=== PATIENT | male | born 1945 | race Caucasian/White ===

== ENCOUNTER 2017-02-21 10:31 | Outpatient (CLI) | payer MEDICARE ==
[2017-02-21 19:04] LABS: ALBUMIN/GLOBULIN RATIO 1.7 (1.0-2.2); BILIRUBIN,TOTAL 0.7 mg/dL (0.2-1.0); BUN - BLOOD UREA NITROGEN 21 mg/dL (6-20); CALCIUM 9.2 mg/dL (8.5-10.3); CARBON DIOXIDE - CO2 29 mmol/L (21-32); CHLORIDE 105 mmol/L (101-111); CREATININE 1.1 mg/dL (0.6-1.2); GFR - MDRD 66 (>89); GLUCOSE 91 mg/dL (70-100); POTASSIUM 4.2 mmol/L (3.5-5.0); SODIUM 139 mmol/L (135-145); TOTAL PROTEIN 6.7 g/dL (6.7-8.2)
== END 2017-02-21 10:32 | disposition home or self-care (01) ==
LOC: LAB.F 10:31
PROVIDERS: ATTEND Physician Assistant Medical
DX: I10 Essential (primary) hypertension (principal); Z12.5 Encounter for screening for malignant neoplasm of prostate; R97.20 Elevated prostate specific antigen [PSA]; E03.9 Hypothyroidism, unspecified
CPT/HCPCS: 36415; 80053; 84443; G0103; 84153

== ENCOUNTER 2017-02-23 10:20 | Outpatient (CLI) | payer MEDICARE ==
[2017-02-23 17:46] LABS: BASOPHILS # (AUTO) 0.1 10^3/uL (0.0-0.1); EOSINOPHILS # (AUTO) 0.2 10^3/uL (0.0-0.7); EOSINOPHILS % (AUTO) 3.3 %; HCT - HEMATOCRIT 43.9 % (42.0-52.0); HGB - HEMOGLOBIN 14.5 g/dL (14.0-18.0); LYMPHOCYTES # (AUTO) 1.3 10^3/uL (1.5-3.5); LYMPHOCYTES % (AUTO) 24.8 %; MEAN CORPUSCULAR HEMOGLOBIN 27.7 pg (27.0-31.0); MEAN CORPUSCULAR VOLUME 83.9 fL (80.0-94.0); MEAN PLATELET VOLUME 8.9 fL (7.4-11.4); MONOCYTES # (AUTO) 0.4 10^3/uL (0.0-1.0); MONOCYTES % (AUTO) 7.6 %; NEUTROPHILS # (AUTO) 3.4 10^3/uL (1.5-6.6); NEUTROPHILS % (AUTO) 63.3 %; NUCLEATED RED BLOOD CELLS AUTO 0.1 /100WBC; RED BLOOD COUNT 5.24 10^6/uL (4.70-6.10); UNCORRECTED WHITE BLOOD COUNT 5.3 x10^3/uL; WHITE BLOOD COUNT 5.3 x10^3/uL (4.8-10.8)
== END 2017-02-23 10:21 | disposition home or self-care (01) ==
LOC: LAB.F 10:20
PROVIDERS: ATTEND Physician Assistant Medical
DX: I10 Essential (primary) hypertension (principal)
CPT/HCPCS: 85025

== ENCOUNTER → 2017-02-28 | Outpatient (CLI) | payer MEDICARE ==
[2017-02-28 18:38] LABS: PSA TOTAL 2.476 ng/mL (0.000-2.000)
[2017-02-28 18:39] LABS: PSA FREE 0.282 ng/mL (0.16-2.81)
== END ==
LOC: LAB.F 08:00
PROVIDERS: ATTEND Physician Assistant Medical
DX: R97.20 Elevated prostate specific antigen [PSA] (principal); Z12.5 Encounter for screening for malignant neoplasm of prostate
CPT/HCPCS: 36415; 84154

== ENCOUNTER 2018-01-16 07:20 | Outpatient (CLI) | payer MEDICARE ==
[2018-01-16 10:39] LABS: BASOPHILS % (AUTO) 0.7 %; EOSINOPHILS # (AUTO) 0.1 10^3/uL (0.0-0.7); EOSINOPHILS % (AUTO) 1.8 %; LYMPHOCYTES # (AUTO) 1.1 10^3/uL (1.5-3.5); LYMPHOCYTES % (AUTO) 25.9 %; MEAN CORPUSCULAR HEMOGLOBIN 28.6 pg (27.0-31.0); MEAN CORPUSCULAR HGB CONC 32.9 g/dL (32.0-36.0); MEAN CORPUSCULAR VOLUME 87.2 fL (80.0-94.0); MEAN PLATELET VOLUME 9.3 fL (7.4-11.4); MONOCYTES # (AUTO) 0.3 10^3/uL (0.0-1.0); MONOCYTES % (AUTO) 7.4 %; NEUTROPHILS # (AUTO) 2.8 10^3/uL (1.5-6.6); NEUTROPHILS % (AUTO) 64.2 %; PLT - PLATELET COUNT 126 10^3/uL (130-450); RED BLOOD COUNT 4.89 10^6/uL (4.70-6.10); RED CELL DISTRIBUTION WIDTH 15.3 % (12.0-15.0); WHITE BLOOD COUNT 4.4 x10^3/uL (4.8-10.8)
[2018-01-16 11:07] LABS: ALBUMIN 3.8 g/dL (3.2-5.5); ALBUMIN/GLOBULIN RATIO 1.5 (1.0-2.2); ALKALINE PHOSPHATASE 50 IU/L (42-121); ALT ALANINE AMINOTRANSFERASE 13 IU/L (10-60); AST ASPARTATE AMINOTRANSFERASE 16 IU/L (10-42); BILIRUBIN,TOTAL 0.9 mg/dL (0.2-1.0); BUN - BLOOD UREA NITROGEN 11 mg/dL (6-20); CARBON DIOXIDE - CO2 28 mmol/L (21-32); CHLORIDE 106 mmol/L (101-111); CHOL/HDL RATIO 3.2 (<5.0); CHOLESTEROL 164 mg/dL; CREATININE 0.9 mg/dL (0.6-1.2); GFR - MDRD 83 (>89); GLUCOSE 89 mg/dL (70-100); HDL CHOLESTEROL 51 mg/dL; LDL CHOLESTEROL,CALCULATED 99 mg/dL; LDL/HDL RATIO 1.9 (<3.6); SODIUM 139 mmol/L (135-145); TOTAL PROTEIN 6.4 g/dL (6.7-8.2); VLDL CHOLESTEROL 14 mg/dL
== END 2018-01-16 07:21 | disposition home or self-care (01) ==
LOC: LAB.F 07:20
PROVIDERS: ATTEND Physician Assistant Medical
DX: I10 Essential (primary) hypertension (principal); E78.5 Hyperlipidemia, unspecified; C61 Malignant neoplasm of prostate; E03.9 Hypothyroidism, unspecified
CPT/HCPCS: 36415; 80053; 80061; 83721; 84153; 84443; 85025

== ENCOUNTER 2018-10-07 08:35 | Outpatient (CLI) | payer MEDICARE ==
[2018-10-07 14:51] LABS: BILIRUBIN,URINE NEGATIVE (NEGATIVE); GLUCOSE, URINE (UA) NEGATIVE (NEGATIVE); KETONES,URINE (UA) NEGATIVE (NEGATIVE); LEUKOCYTE ESTERASE, URINE NEGATIVE (NEGATIVE); NITRITE,URINE NEGATIVE (NEGATIVE); OCCULT BLOOD,URINE NEGATIVE (NEGATIVE); PROTEIN,URINE NEGATIVE (NEGATIVE); UROBILINOGEN,URINE 0.2 (NORMAL) E.U./dL (NORMAL)
[2018-10-07 14:53] LABS: CLARITY,URINE CLEAR (CLEAR)
== END 2018-10-07 23:59 | disposition home or self-care (01) ==
LOC: LAB.R 08:35
PROVIDERS: ATTEND Physician Assistant Medical
DX: R31.0 Gross hematuria (principal)
CPT/HCPCS: 81001; 81003; 87086

== ENCOUNTER 2018-11-17 08:29 | Outpatient (CLI) | payer MEDICARE ==
[2018-11-17 11:35] LABS: BASOPHILS % (AUTO) 0.6 %; EOSINOPHILS # (AUTO) 0.1 10^3/uL (0.0-0.7); EOSINOPHILS % (AUTO) 2.1 %; HGB - HEMOGLOBIN 14.9 g/dL (14.0-18.0); LYMPHOCYTES # (AUTO) 1.1 10^3/uL (1.5-3.5); LYMPHOCYTES % (AUTO) 21.7 %; MEAN CORPUSCULAR HEMOGLOBIN 28.9 pg (27.0-31.0); MEAN CORPUSCULAR VOLUME 87.7 fL (80.0-94.0); MEAN PLATELET VOLUME 8.9 fL (7.4-11.4); MONOCYTES # (AUTO) 0.3 10^3/uL (0.0-1.0); MONOCYTES % (AUTO) 6.7 %; NEUTROPHILS # (AUTO) 3.4 10^3/uL (1.5-6.6); NEUTROPHILS % (AUTO) 68.9 %; PLT - PLATELET COUNT 156 10^3/uL (130-450); RED BLOOD COUNT 5.15 10^6/uL (4.70-6.10); RED CELL DISTRIBUTION WIDTH 14.5 % (12.0-15.0)
[2018-11-17 11:38] LABS: BILIRUBIN,URINE NEGATIVE (NEGATIVE); GLUCOSE, URINE (UA) NEGATIVE (NEGATIVE); KETONES,URINE (UA) NEGATIVE (NEGATIVE); LEUKOCYTE ESTERASE, URINE NEGATIVE (NEGATIVE); NITRITE,URINE NEGATIVE (NEGATIVE); OCCULT BLOOD,URINE NEGATIVE (NEGATIVE); PROTEIN,URINE NEGATIVE (NEGATIVE); UROBILINOGEN,URINE 0.2 (NORMAL) E.U./dL (NORMAL)
[2018-11-17 11:42] LABS: CLARITY,URINE CLEAR (CLEAR)
[2018-11-17 12:06] LABS: ALBUMIN 4.1 g/dL (3.2-5.5); ALBUMIN/GLOBULIN RATIO 1.8 (1.0-2.2); ALKALINE PHOSPHATASE 52 IU/L (42-121); ALT ALANINE AMINOTRANSFERASE 16 IU/L (10-60); AST ASPARTATE AMINOTRANSFERASE 17 IU/L (10-42); BILIRUBIN,TOTAL 0.5 mg/dL (0.2-1.0); BUN - BLOOD UREA NITROGEN 16 mg/dL (6-20); CALCIUM 9.3 mg/dL (8.5-10.3); CARBON DIOXIDE - CO2 30 mmol/L (21-32); CHLORIDE 105 mmol/L (101-111); CHOL/HDL RATIO 3.2 (<5.0); CHOLESTEROL 178 mg/dL; CREATININE 0.9 mg/dL (0.6-1.2); GFR - MDRD 83 (>89); GLUCOSE 92 mg/dL (70-100); HDL CHOLESTEROL 56 mg/dL; LDL CHOLESTEROL,CALCULATED 110 mg/dL; SODIUM 143 mmol/L (135-145); TOTAL PROTEIN 6.4 g/dL (6.7-8.2); VLDL CHOLESTEROL 12 mg/dL
== END 2018-11-17 08:30 | disposition home or self-care (01) ==
LOC: LAB.F 08:29
PROVIDERS: ATTEND Physician Assistant Medical
DX: R31.0 Gross hematuria (principal); E78.5 Hyperlipidemia, unspecified; C61 Malignant neoplasm of prostate; E03.9 Hypothyroidism, unspecified
CPT/HCPCS: 36415; 80053; 80061; 81001; 81003; 83721; 84153; 84443; 85025; 87086

== ENCOUNTER 2018-11-28 07:11 | Outpatient (CLI) | payer MEDICARE ==
[2018-11-28 12:33] LABS: THYROID STIMULATING HORMONE 4.63 uIU/mL (0.34-5.60)
[2018-11-28 12:35] LABS: FREE T4 (FREE THYROXINE) 0.96 ng/dL (0.58-1.64)
== END 2018-11-28 07:12 | disposition home or self-care (01) ==
LOC: LAB.F 07:11
PROVIDERS: ATTEND Physician Assistant Medical
DX: E03.9 Hypothyroidism, unspecified (principal)
CPT/HCPCS: 36415; 84439; 84443; 84481

== ENCOUNTER 2019-01-05 10:59 | Outpatient (CLI) | payer MEDICARE ==
[2019-01-05 17:59] LABS: CREATININE 0.7 mg/dL (0.6-1.2); MAGNESIUM 2.3 mg/dL (1.7-2.8)
== END 2019-01-05 11:00 | disposition home or self-care (01) ==
LOC: LAB.S 10:59
PROVIDERS: ATTEND Internal Medicine Cardiovascular Disease
DX: I47.2 Ventricular tachycardia (principal)
CPT/HCPCS: 36415; 80048; 83735; 84443

== ENCOUNTER 2019-02-22 10:21 | Outpatient (CLI) | payer MEDICARE | END 2019-02-22 10:22 | disposition home or self-care (01) | LOC: LAB 10:21 | PROVIDERS: ATTEND Urology | DX: C61 Malignant neoplasm of prostate (principal) | CPT/HCPCS: 36415; 84153 ==

== ENCOUNTER 2019-09-05 09:18 | Outpatient (CLI) | payer MEDICARE | END 2019-09-05 09:19 | disposition home or self-care (01) | LOC: LAB 09:18 | PROVIDERS: ATTEND Urology | DX: C61 Malignant neoplasm of prostate (principal) | CPT/HCPCS: 36415; 84153 ==

== ENCOUNTER 2020-01-23 09:21 | Outpatient (CLI) | payer MEDICARE ==
[2020-01-23 14:57] LABS: BASOPHILS % (AUTO) 0.4 %; EOSINOPHILS # (AUTO) 0.1 10^3/uL (0.0-0.7); EOSINOPHILS % (AUTO) 1.8 %; HGB - HEMOGLOBIN 13.4 g/dL (14.0-18.0); LYMPHOCYTES # (AUTO) 0.9 10^3/uL (1.5-3.5); LYMPHOCYTES % (AUTO) 18.6 %; MEAN CORPUSCULAR HEMOGLOBIN 28.3 pg (27.0-31.0); MEAN CORPUSCULAR HGB CONC 30.9 g/dL (32.0-36.0); MEAN CORPUSCULAR VOLUME 91.5 fL (80.0-94.0); MEAN PLATELET VOLUME 11.4 fL (7.4-11.4); MONOCYTES # (AUTO) 0.3 10^3/uL (0.0-1.0); MONOCYTES % (AUTO) 5.7 %; NEUTROPHILS # (AUTO) 3.6 10^3/uL (1.5-6.6); NEUTROPHILS % (AUTO) 73.1 %; PLT - PLATELET COUNT 148 10^3/uL (130-450); RED BLOOD COUNT 4.73 10^6/uL (4.70-6.10); RED CELL DISTRIBUTION WIDTH 14.2 % (12.0-15.0); WHITE BLOOD COUNT 4.9 x10^3/uL (4.8-10.8)
[2020-01-23 15:43] LABS: ALBUMIN 4.2 g/dL (3.2-5.5); ALBUMIN/GLOBULIN RATIO 1.7 (1.0-2.2); ALKALINE PHOSPHATASE 52 IU/L (42-121); ALT ALANINE AMINOTRANSFERASE 15 IU/L (10-60); AST ASPARTATE AMINOTRANSFERASE 18 IU/L (10-42); BILIRUBIN,TOTAL 0.9 mg/dL (0.2-1.0); BUN - BLOOD UREA NITROGEN 15 mg/dL (6-20); CARBON DIOXIDE - CO2 28 mmol/L (21-32); CHLORIDE 107 mmol/L (101-111); CHOL/HDL RATIO 2.9 (<5.0); CHOLESTEROL 169 mg/dL; CREATININE 0.9 mg/dL (0.6-1.2); GLUCOSE 89 mg/dL (70-100); HDL CHOLESTEROL 58 mg/dL; LDL CHOLESTEROL,CALCULATED 100 mg/dL; LDL/HDL RATIO 1.7 (<3.6); SODIUM 141 mmol/L (135-145); TOTAL PROTEIN 6.7 g/dL (6.7-8.2); VLDL CHOLESTEROL 11 mg/dL
--- NOTE | 2020-01-23 17:44 | XRAY Report ---
PROCEDURE: Knee 3 View RT INDICATIONS: KNEE JOINT PAIN, RIGHT TECHNIQUE: 3 views of the right knee(s) were acquired. COMPARISON: None. FINDINGS: Bones: No fractures or dislocations. No suspicious bony lesions. Moderate tricompartmental osteoart hritis. Soft tissues: No joint effusion. Nonspecific chondrocalcinosis. IMPRESSION: Moderate tricompartmental osteophytosis. Reviewed by: Karen Mitchell MD, PhD on 01/23/2020 5:43 PM PDT Approved by: Karen Mitchell MD, PhD on 01/23/2020 5:43 PM PDT Station ID: [id number]
== END 2020-01-23 09:22 | disposition home or self-care (01) ==
LOC: DI.S 09:21
PROVIDERS: ATTEND Physician Assistant
DX: M17.11 Unilateral primary osteoarthritis, right knee (principal); E03.9 Hypothyroidism, unspecified; E78.5 Hyperlipidemia, unspecified; C61 Malignant neoplasm of prostate; Z79.899 Other long term (current) drug therapy
CPT/HCPCS: 36415; 80053; 80061; 83721; 84153; 84443; 85025

== ENCOUNTER 2020-09-05 12:30 | Outpatient (CLI) | payer MEDICARE ==
--- NOTE | 2020-09-05 14:45 | XRAY Report ---
PROCEDURE: Knee Standing RT INDICATIONS: RIGHT KNEE JOINT PAIN TECHNIQUE: 4 views of the right knee, and 1 views of the left knee. COMPARISON: 12/24/2019 FINDINGS: Bones: No acute fractures or dislocations. Asymmetric moderate to severe right medial femoral tibial compartment osteoarthritic changes are seen. Mild to moderate right lateral femoral tibial compartme nt and patellofemoral compartment osteoarthritic changes are seen. Mild left medial and lateral femor al tibial compartment osteoarthritic changes also noted. No suspicious bony lesions. No patella sublu xation. Soft tissues: No significant knee joint effusions. Chondrocalcinosis are noted in bilateral medial a nd lateral femoral tibial compartments. IMPRESSION: 1. Moderate to severe right medial femoral tibial compartment osteoarthritis. Mild to moderate right lateral femoral tibial compartment and patellofemoral compartment osteoarthritis. 2. Chondrocalcinosis in bilateral medial and lateral femoral tibial compartments. Reviewed by: Diego Negro MD on 09/05/2020 2:43 PM PST Approved by: Diego Negro MD on 09/05/2020 2:43 PM PST Station ID: [id number]
== END 2020-09-05 23:59 | disposition home or self-care (01) ==
LOC: DI.N 12:30
PROVIDERS: ATTEND Physician Assistant
DX: M17.11 Unilateral primary osteoarthritis, right knee (principal); M11.262 Other chondrocalcinosis, left knee; M11.261 Other chondrocalcinosis, right knee

== ENCOUNTER 2020-10-13 11:18 | Outpatient (CLI) | payer MEDICARE ==
[2020-10-13 11:36] LABS: BASOPHILS % (AUTO) 0.6 %; EOSINOPHILS # (AUTO) 0.1 10^3/uL (0.0-0.7); HCT - HEMATOCRIT 45.5 % (42.0-52.0); HGB - HEMOGLOBIN 14.7 g/dL (14.0-18.0); LYMPHOCYTES % (AUTO) 19.6 %; MEAN CORPUSCULAR HEMOGLOBIN 28.9 pg (27.0-31.0); MEAN CORPUSCULAR HGB CONC 32.3 g/dL (32.0-36.0); MEAN CORPUSCULAR VOLUME 89.4 fL (80.0-94.0); MEAN PLATELET VOLUME 10.5 fL (7.4-11.4); MONOCYTES # (AUTO) 0.3 10^3/uL (0.0-1.0); NEUTROPHILS # (AUTO) 3.5 10^3/uL (1.5-6.6); NEUTROPHILS % (AUTO) 70.6 %; PLT - PLATELET COUNT 156 10^3/uL (130-450); RED BLOOD COUNT 5.09 10^6/uL (4.70-6.10); RED CELL DISTRIBUTION WIDTH 13.7 % (12.0-15.0); WHITE BLOOD COUNT 4.9 x10^3/uL (4.8-10.8)
[2020-10-13 11:53] LABS: CALCIUM 9.6 mg/dL (8.5-10.3); POTASSIUM 4.6 mmol/L (3.5-5.0)
[2020-10-13 12:06] LABS: THYROID STIMULATING HORMONE 3.05 uIU/mL (0.34-5.60)
[2020-10-13 12:12] LABS: ALBUMIN 4.3 g/dL (3.2-5.5); ALBUMIN/GLOBULIN RATIO 1.7 (1.0-2.2); BILIRUBIN,TOTAL 0.8 mg/dL (0.2-1.0); CREATININE 0.8 mg/dL (0.6-1.2); TOTAL PROTEIN 6.9 g/dL (6.7-8.2)
== END 2020-10-13 11:19 | disposition home or self-care (01) ==
LOC: LAB 11:18
PROVIDERS: ATTEND Physician Assistant
DX: I10 Essential (primary) hypertension (principal); Z79.899 Other long term (current) drug therapy; R73.01 Impaired fasting glucose; E78.5 Hyperlipidemia, unspecified; E03.9 Hypothyroidism, unspecified; C61 Malignant neoplasm of prostate
CPT/HCPCS: 36415; 80053; 84153; 84443; 85025

== ENCOUNTER 2020-11-06 11:20 | Outpatient (CLI) | payer MEDICARE | END 2020-11-06 11:21 | disposition home or self-care (01) | LOC: LAB.N 11:20 | PROVIDERS: ATTEND Physician Assistant | DX: Z01.812 Encounter for preprocedural laboratory examination (principal); Z20.822 Contact with and (suspected) exposure to COVID-19 ==

== ENCOUNTER 2020-11-12 06:08 | Day surgery (SDC) | payer MEDICARE ==
[~2020-11-12 06:08] MED LIST: ACETAMINOPHEN 500 MG TABLET PO ONE; CELECOXIB 100 MG CAPSULE PO ONE; DEXAMETHASONE 10 MG/ML VIAL ONE; ceFAZolin 2 GM/50 ML 2 GM/50 ML BAG IV ONE
[2020-11-12] MEDS ORDERED: LACTATED RINGERS 1,000 ML IV ONE ×2 (06:49→11:31)
[2020-11-12] MEDS ORDERED: VANCOMYCIN 1 GM VIAL ONE (07:03)
--- NOTE | 2020-11-12 07:13 | ANESTHESIA ---
Pre-Anesthesia VS, & Labs - Diagnosis R knee OA - Procedure R TKA Vital Signs: Temp Pulse Resp BP Pulse Ox 36.2 C L 59 L 18 136/71 H 99 11/12/20 06:15 11/12/20 06:15 11/12/20 06:15 11/12/20 06:15 11/12/20 06:15 Height: 5 ft 11 in Weight (kg): 96.3 kg Body Mass Index: 29.6 BMI Classification: Overweight - NPO >8 hours - Lab Results Current Lab Results: Laboratory Tests 11/12/20 06:46: POC Whole Bld Glucose 77 Home Medications and Allergies Home Medications: Ambulatory Orders Allopurinol [Zyloprim] 300 mg PO DAILY 11/11/20 Amlodipine Besylate [Norvasc] 10 mg PO DAILY 11/11/20 Aspirin [Aspirin EC] 81 mg PO DAILY 11/11/20 Levothyroxine [Synthroid] 125 mcg PO QDAC 11/11/20 Lisinopril/Hydrochlorothiazide [Zestoretic 20-12.5 mg Tablet] 1 each PO DAILY 11/11/20 Multivitamin 1 each PO DAILY 11/11/20 Omeprazole 20 mg PO DAILY 11/11/20 Allopurinol [Zyloprim] 300 mg PO DAILY 11/11/20 Amlodipine Besylate [Norvasc] 10 mg PO DAILY 11/11/20 Aspirin [Aspirin EC] 81 mg PO DAILY 11/11/20 Levothyroxine [Synthroid] 125 mcg PO QDAC 11/11/20 Lisinopril/Hydrochlorothiazide [Zestoretic 20-12.5 mg Tablet] 1 each PO DAILY 11/11/20 Multivitamin 1 each PO DAILY 11/11/20 Omeprazole 20 mg PO DAILY 11/11/20 Allergies/Adverse Reactions: Allergies Allergy/AdvReac Type Severity Reaction Status Date / Time No Known Drug Allergies Allergy Verified 11/11/20 10:49 Anes History & Medical History - Anesthetic History Anesthesia Complications: reports: No previous complications Family history of Anesthesia Complications: Denies Family history of Malignant Hyperthermia: Denies - Medical History Cardiovascular: reports: Hypertension Pulmonary: reports: None Gastrointestinal: reports: GERD Urinary: reports: Other Musculoskeletal: reports: Osteoarthritis, Gout Endocrine/Autoimmune: reports: Other Skin: reports: None - Surgical History General: reports: Colonoscopy, Other Exam General: Alert, Oriented x3, Cooperative Dental: WNL Mouth Openin Fingerbreadth Neck Mobility: Normal Mallampati classification: II Thyromental Distance: 4-6 cm Respiratory: Lungs clear Cardiovascular: Regular rate Plan Anesthesia Type: General, Spinal, Adductor Block Regional Block: Per Surgeon's request for Post Op pain control Consent for Procedure(s) Verified and Reviewed: Yes Code Status: Attempt Resuscitation ASA classification: 2-Mild systemic disease Is this case an emergency?: No
[2020-11-12] MEDS ORDERED: MIDAZOLAM 2 MG/2 ML VIAL ONE (07:18)
[2020-11-12] MEDS ORDERED: DEXMEDETOMIDINE 200 MCG/2 ML VIAL ONE (07:19)
[2020-11-12] MEDS ORDERED: KETAMINE 500 MG/10 ML VIAL ONE (07:20)
[2020-11-12] MEDS ORDERED: PROPOFOL 1000 MG/100 ML 1,000 MG/100 ML BOTTLE IV ONE (07:47)
[2020-11-12] MEDS ORDERED: ROPIVACAINE 0.5% PF 20 ML AMPULE ONE (08:19)
[2020-11-12] MEDS ORDERED: DEXAMETHASONE 4 MG/ML VIAL ONE (08:19)
[2020-11-12] MEDS ORDERED: ONDANSETRON 4 MG/2 ML VIAL ONE (09:14)
[2020-11-12] MEDS ORDERED: TRANEXAMIC ACID 1,000 MG/10 ML VIAL ONE ×2 (09:14)
[2020-11-12] MEDS ORDERED: PHENYLEPHRINE 10 MG/ML VIAL ONE (09:14)
[2020-11-12] MEDS ORDERED: BUPIVACAINE 0.5% PF 10 ML VIAL ONE (09:15)
[2020-11-12] MEDS ORDERED: PROPOFOL 200 MG/20 ML VIAL IVP ONE ×2 (09:16→10:59)
[2020-11-12] MEDS ORDERED: VANCOMYCIN 1 GM VIAL MC ONE (10:23)
[2020-11-12] MEDS ORDERED: BUPIVACAINE 0.25% PF 30 ML VIAL ONE (10:35)
[2020-11-12] MEDS ORDERED: BUPIVACAINE 0.25% PF 30 ML VIAL SUBQ ONE (10:36)
--- NOTE | 2020-11-12 10:50 | OPERATIVE REPORT ---
Operative Report - General Procedure Date: 11/12/20 Planned Procedure: right total knee arthroplasty Pre-Op Diagnosis: Varus osteoarthritis right knee Procedure Performed: right total knee arthroplasty:Arroyo [employer] Nephew journey 2, posterior cruciate retaining total knee system: #6 femoral component, Oxinium; #6 tibial base plate, 9 mm deep dished articular insert, 29 mm biconvex patellar component. All components cemented with Arroyo [employer] Nephew cement without antibiotics - Procedure Note Primary Surgeon: Ernesto Barroso MD Secondary Surgeon: Rahul Bailey MD, Joey CHILDERS Anesthesia Provider: Ashlee Becerra CRNA Anesthesia Technique: Moderate sedation, Spinal Estimated Blood Loss (mL): 100 Indications: This is a 75-year-old man with progressive and chronic pain to his right knee with weightbearing activities despite nonoperative treatment as discussed in his preoperative history and physical. He had joint line tenderness, decreased motion but no flexion contracture, good stability and strength. His x-rays showed abnormal findings with varus angulation, loss of joint space to medial compartment, osteophytes consistent with advanced varus osteoarthritis right knee Findings: Right knee:There were eburnated bone surfaces to the medial compartment, focal full-thickness articular cartilage to the weightbearing surface of the lateral femoral condyle, near complete loss of articular cartilage to the patella, focal articular full-thickness loss to trochlea. The posterior cruciate ligament was intact. His collateral ligaments are intact. Complications: None - Other Other Information/Narrative: The patient was brought to the operating room and was placed in a supine position. He was given a adductor canal block by anesthesia. A sterile pneumatic tourniquet was applied to the proximal right thigh over cast padding. This was a conical shaped Mitchell thigh tourniquet that was sterile. The Saavedra leg mart was placed on the operating room table to facilitate knee flexion of the left knee during surgery. A timeout procedure was performed by the entire operating room team and all were in agreement. A midline longitudinal incision was made with the knee in flexion. A medial parapatellar arthrotomy was made. The anterior horn of medial and lateral menisci were released and part of patellar fat pad was excised. The knee was flexed and the patella was dislocated laterally. A drill hole was made in the intramedullary notch with a 9.5 mm drill. Osteophytes about the proximal tibia and femur had been removed with a rongeur. The distal femoral cutting guide was aligned parallel to the posterior condyles. The intramedullary marjorie and guide was advanced and the distal femoral guide was stabilized with half pins. The distal 5 degrees valgus cut was made through the distal femoral guide. Next the extra medullary tibial guide was assembled and applied and aligned to the mechanical axis in both sagittal and coronal planes. Tibial referencing was done to allow 3 mm of bone from the most affected medial side and 10 mm from the least affected side. The tibial guide was stabilized with half pins. Retractors were placed medially and laterally to protect the collateral ligaments and a retractor was placed directly against the posterior bone to sublux the tibia anteriorly. A DerbyJackpot precision saw was used to make the tibial proximal cut. The tibial block was removed as a single piece and the menisci were removed as well. The extension gap was assessed with a extension block spacer using a 10 mm spacer and this was found to fit well as well as the 9 mm spacer block with the knee in 90 degrees of flexion. Next the femoral positioning guide was applied and aligned to the epicondylar axis and Jessica line. This was secured in place with approximately 3 degrees of external rotation. The size of the femur at the anterior lateral trochlea was a #6. Drill holes were made in the 5 and 1 #6 cutting block was inserted and secured. The 5 cuts were made to the captured block using oscillating saw. The flexion gap was assessed with the 10 mm spacer and was found to fit well. The patella was then prepared. A biconvex patellar reamer was used. The tibial trial #6 was then applied to the tibia and aligned to the mechanical axis. The drill and punch fin were utilized. Trial reduction was performed with the femoral and tibial components in place. Notch resection was then through the trial component. Pulsatile lavage was performed. A tourniquet was applied during the cementing process. The components were inserted sequentially: Tibia, femur and lastly patellar component. Excess cement was removed and the knee was placed in extension during the hardening. Dilute Betadine irrigation was performed. The knee had full range of motion, good patellar tracking. There was good stability of the knee in full extension mid flexion and 90 degrees of flexion. There was good alignment of the right knee. The tourniquet had been deflated and had been in place for 27 minutes. Hemostasis was achieved with electrocautery. The deep closure was performed with #2 Ethibond proximal and distal to the patella with the knee in 40 degrees of flexion. # 1 stratofix suture was then used to close the arthrotomy incision. 2-0 stratofix was used to close the subcutaneous tissue. 3-0 Monocryl was used to do a subcuticular skin closure. Dermabond was applied to the skin incision. After the Dermabond had hardened, a silver impregnated dressing was applied. He tolerated the procedure well and received 2 g of Ancef intravenously and 2 g of tranexamic acid. 2 g of vancomycin powder were inserted into the knee joint prior to deep closure. 30 cc of quarter percent Marcaine was injected in the knee joint for postop pain relief. A surgical processor was utilized during the procedure, felt to be necessary to assist in exposure, protection of vital structures and wound closure.
[2020-11-12] MEDS ORDERED: ONDANSETRON 4 MG/2 ML VIAL IVP PRN ×2 (11:18→11:31)
[2020-11-12] MEDS ORDERED: DOCUSATE SODIUM 100 MG CAPSULE PO PRN (11:18)
[2020-11-12] MEDS ORDERED: SODIUM CHLORIDE FLUSH 0.9% 10 ML SYRINGE IVP PRN (11:18)
[2020-11-12] MEDS: fentaNYL 100 MCG/2 ML VIAL IVP PRN ×2 (11:28→11:33)
[2020-11-12] MEDS: HYDROmorphone 0.5 MG/0.5 ML SYRINGE IVP PRN ×4 (11:28→12:01)
[2020-11-12] MEDS ORDERED: METOCLOPRAMIDE 10 MG/2 ML VIAL IVP PRN (11:31)
[2020-11-12] MEDS ORDERED: ATROPINE ABBOJECT 1 MG/10 ML SYRINGE IVP PRN (11:31)
[2020-11-12] MEDS ORDERED: MORPHINE 2 MG/ML CARPUJECT IVP PRN (11:31)
[2020-11-12] MEDS ORDERED: ePHEDrine 50 MG/ML VIAL IVP PRN (11:31)
[2020-11-12] MEDS ORDERED: NALOXONE 0.4 MG/ML VIAL IVP PRN (11:31)
[2020-11-12] MEDS ORDERED: HYDROmorphone 1 MG/ML CARPUJECT ONE (11:33)
[2020-11-12] MEDS ORDERED: HYDROmorphone 0.5 MG/0.5 ML SYRINGE ONE ×2 (11:50→11:59)
[2020-11-12] MEDS ORDERED: NS W/20 MEQ KCL 1,000 ML IV SCH (12:00)
[2020-11-12] MEDS ORDERED: LACTATED RINGERS 1,000 ML IV SCH (12:00)
[2020-11-12] MEDS: ACETAMINOPHEN 500 MG TABLET PO SCH ×2 (12:52→17:22)
--- NOTE | 2020-11-12 12:59 | XRAY Report ---
PROCEDURE: Knee 2 View RT INDICATIONS: Postop TECHNIQUE: 2 views of the right knee(s) were acquired. COMPARISON: None. FINDINGS: Bones: No fractures or dislocations. No suspicious bony lesions. Expected alignment of right knee arthroplasty. Hardware appears intact. Soft tissues: No joint effusion. No suspicious soft tissue calcifications. Postsurgical soft tissu e sequela. IMPRESSION: Expected postoperative alignment. Reviewed by: Kali Christianson MD on 11/12/2020 12:58 PM PDT Approved by: Kali Christianson MD on 11/12/2020 12:58 PM PDT Station ID: [id number]
[2020-11-12] MEDS: ceFAZolin 2 GM/50 ML 2 GM/50 ML BAG IV SCH ×2 (13:01→22:30)
--- NOTE | 2020-11-12 13:47 | CONSULTATION NOTE ---
Referring Provider Name of Referring Provider:: Dr. Barroso Consult Date: 11/12/20 Chief Complaint - Chief Complaint Chief Complaint: right knee pain History of Present Illness - Admitted From Admitted From:: Medical floor - History Obtained From Records Reviewed: [facility] History obtained from: pt Exam Limitations: no - History of Present Illness HPI Comment/Other: This is a 75 years old male with a past medical history significant for Hypertension, GERD, hypothyroidism, osteoarthritis, gout who had right total knee arthroplasty. Medical team was consulted by orthopedics for medical management for s/p care of his right total knee arthroplasty. Patient report his right knee pain is 3 of 10, Otherwise he has no other complaints. he reported he ate his lunch and he took his home medications in the morning as a regular. He denies any chest pain, fever, shortness breathing. Patient tell me he is DNR for his code status. History - Past Medical History Cardiovascular: reports: Hypertension Respiratory: reports: None Endocrine/Autoimmune: reports: Other GI: reports: GERD : reports: Other HEENT: reports: Chronic vision loss, Chronic hearing loss Psych: reports: None Musculoskeletal: reports: Osteoarthritis, Gout Derm: reports: None MRSA Hx?: No - Past Surgical History General: reports: Colonoscopy, Other Meds/Allgy - Home Medications Home Medications: Ambulatory Orders Medication Instructions Recorded Confirmed Allopurinol [Zyloprim] 300 mg PO DAILY 11/11/20 11/12/20 Amlodipine Besylate [Norvasc] 10 mg PO DAILY 11/11/20 11/12/20 Aspirin [Aspirin EC] 81 mg PO DAILY 11/11/20 11/12/20 Levothyroxine [Synthroid] 125 mcg PO QDAC 11/11/20 11/12/20 Lisinopril/Hydrochlorothiazide 1 each PO DAILY 11/11/20 11/12/20 [Zestoretic 20-12.5 mg Tablet] Multivitamin 1 each PO DAILY 11/11/20 11/12/20 Omeprazole 20 mg PO DAILY 11/11/20 11/12/20 - Allergies Allergies/Adverse Reactions: Allergies Allergy/AdvReac Type Severity Reaction Status Date / Time No Known Drug Allergies Allergy Verified 11/11/20 10:49 Review of Systems - Constitutional Constitutional: denies: Fever, Chills, Weakness, Poor appetite, Diaphoresis - Eyes Eyes: denies: Pain, Blurred vision, Field loss, Vision loss - Ears, Nose & Throat Ears, Nose & Throat: denies: Ear pain, Hearing aids, Nosebleeds - Cardiovascular Cariovascular: denies: Irregular heart rate, Palpitations, Chest pain, Edema, Lightheadedness, Syncope, Exertional dyspnea - Respiratory Respiratory: denies: Cough, Sputum production, Wheezing, Hemoptysis, Orthopnea, SOB at rest, SOB with exertion - Gastrointestinal Gastrointestinal: denies: Abdominal pain, Constipation, Diarrhea, Rectal bleeding, Nausea, Vomiting - Genitourinary Genitourinary: denies: Dysuria, Urgency, Incontinence - Musculoskeletal Musculoskeletal: reports: Limited range of motion. denies: Muscle pain, Muscle aches - Integumentary Integumentary: denies: Rash, Lesions, Lumps - Neurological Neurological: denies: General weakness, Focal weakness, Headache, Dizziness, Numbness, Pre-existing deficit, Abnormal gait, Seizures, Incoordination, Slurred speech - Psychiatric Psychiatric: denies: Depression, Delusions - Endocrine Endocrine: denies: Polyuria, Polydypsia - Hematologic/Lymphatic Hematologic/Lymphatic: denies: Anemia, Blood clots Exam - Vital Signs Vital Signs: Vital Signs x48h Temp Pulse Resp BP Pulse Ox 11/12/20 12:47 36.5 C 74 16 135/69 H 98 11/12/20 12:32 36.5 C 54 L 16 119/70 98 11/12/20 12:10 56 L 21 102/72 98 11/12/20 12:05 53 L 14 115/64 98 11/12/20 12:00 36.5 C 54 L 11 L 105/65 53 L 11/12/20 11:55 53 L 14 105/67 100 11/12/20 11:50 36.5 C 52 L 14 115/66 100 11/12/20 11:45 54 L 15 97/62 99 11/12/20 11:40 55 L 10 L 119/98 H 100 11/12/20 11:35 36.3 C L 55 L 12 85/64 L 94 11/12/20 11:30 58 L 16 110/52 L 95 11/12/20 11:26 37.2 C 54 L 18 111/71 97 11/12/20 06:15 36.2 C L 59 L 18 136/71 H 99 - Physical Exam General Appearance: positive: No acute distress, Alert. negative: Lethargic Eyes Bilateral: positive: Normal inspection, PERRL, No lid inflammation ENT: positive: ENT inspection nml, No signs of dehydration. negative: Purulent nasal drainage Neck: positive: Nml inspection, Trachea midline. negative: Thyromegaly, Tracheal deviation Respiratory: positive: Chest non-tender, No respiratory distress, Breath sounds nml. negative: Wheezes, Rales Cardiovascular: positive: Regular rate & rhythm, No murmur. negative: Tachycardia, Bradycardia, Systolic murmur, Diastolic murmur Peripheral Pulses: positive: 2+ Abdomen: positive: Non-tender, Nml bowel sounds, No distention. negative: Tenderness Back: positive: Nml inspection Skin: positive: Color nml, Warm, Dry. negative: Cyanosis Extremities: positive: Other (right knee was covered by surgery dressing. distal of right low extremity has intact neurovascular status.). negative: Calf tenderness Neurologic/Psychiatric: positive: Oriented x3, Sensation nml, Mood/affect nml. negative: Weakness, Sensory loss, Facial droop, Slurred/abnml speech, Depressed mood/affect Conclusion/Plan - Plan Plan: 1, s/p of right total knee arthroplasty Plan: followup with orthopedics, Continue DVT prophylaxis per surgeon, pain control, and PT/OT 2, HTN stable, pt already took his BP meds at the morning, will resume after confirm 3, hypothyroidism will check TSH, and resume home synthroid 4, GERD resume home PPI
[2020-11-12 14:26] LABS: BASOPHILS % (AUTO) 0.2 %; EOSINOPHILS % (AUTO) 0.1 %; HCT - HEMATOCRIT 41.5 % (42.0-52.0); HGB - HEMOGLOBIN 13.3 g/dL (14.0-18.0); LYMPHOCYTES # (AUTO) 0.4 10^3/uL (1.5-3.5); LYMPHOCYTES % (AUTO) 4.2 %; MEAN CORPUSCULAR HEMOGLOBIN 28.9 pg (27.0-31.0); MEAN PLATELET VOLUME 10.6 fL (7.4-11.4); MONOCYTES # (AUTO) 0.1 10^3/uL (0.0-1.0); MONOCYTES % (AUTO) 1.3 %; NEUTROPHILS # (AUTO) 9.4 10^3/uL (1.5-6.6); NEUTROPHILS % (AUTO) 93.8 %; PLT - PLATELET COUNT 158 10^3/uL (130-450); RED BLOOD COUNT 4.61 10^6/uL (4.70-6.10); RED CELL DISTRIBUTION WIDTH 13.9 % (12.0-15.0); WHITE BLOOD COUNT 10.1 x10^3/uL (4.8-10.8)
[2020-11-12 14:46] LABS: ALBUMIN/GLOBULIN RATIO 1.4 (1.0-2.2); BILIRUBIN,TOTAL 0.5 mg/dL (0.2-1.0); CREATININE 0.9 mg/dL (0.6-1.2); POTASSIUM 4.2 mmol/L (3.5-5.0); TOTAL PROTEIN 6.8 g/dL (6.7-8.2)
[2020-11-12] MEDS: oxyCODONE 5 MG TABLET PO PRN (14:58)
[2020-11-12] MEDS: SODIUM CHLORIDE FLUSH 0.9% 10 ML SYRINGE IVP SCH (16:07)
--- NOTE | 2020-11-12 16:47 | ANESTHESIA POST OP EVALUATION ---
Anesthesia Post Eval - Post Anesthesia Eval Vitals: Last Vital Signs Temp 36.7 C 11/12/20 16:17 Pulse 59 L 11/12/20 16:17 Resp 16 11/12/20 16:17 BP 114/51 L 11/12/20 16:17 Pulse Ox 98 11/12/20 16:17 CV Function Including HR & BP: Stable Pain Control: Satisfactory Nausea & Vomiting: Negative Mental Status: Baseline Respiratory Status: Airway Patent Hydration Status: Satisfactory Anesthesia Complications: None
[2020-11-12] MEDS: SODIUM CHLORIDE 0.9% 1,000 ML IV SCH (19:00)
[2020-11-12] MEDS ORDERED: CELECOXIB 100 MG CAPSULE PO SCH (21:00)
[2020-11-12] MEDS: ethyl alcohoL 62% SWAB AMPULE NAS SCH (22:26)
[2020-11-12] MEDS: ASPIRIN EC 81 MG TABLET PO SCH (22:26)
[2020-11-13] MEDS: SODIUM CHLORIDE FLUSH 0.9% 10 ML SYRINGE IVP SCH ×2 (00:24→10:08)
[2020-11-13] MEDS: oxyCODONE 5 MG TABLET PO PRN ×2 (00:24→08:06)
[2020-11-13] MEDS: ACETAMINOPHEN 500 MG TABLET PO SCH ×3 (00:24→12:55)
[2020-11-13 04:52] LABS: BASOPHILS % (AUTO) 0.1 %; HCT - HEMATOCRIT 33.5 % (42.0-52.0); LYMPHOCYTES # (AUTO) 0.6 10^3/uL (1.5-3.5); LYMPHOCYTES % (AUTO) 7.1 %; MEAN CORPUSCULAR HEMOGLOBIN 29.2 pg (27.0-31.0); MEAN CORPUSCULAR HGB CONC 32.8 g/dL (32.0-36.0); MEAN CORPUSCULAR VOLUME 88.9 fL (80.0-94.0); MONOCYTES # (AUTO) 0.7 10^3/uL (0.0-1.0); MONOCYTES % (AUTO) 7.8 %; NEUTROPHILS # (AUTO) 7.3 10^3/uL (1.5-6.6); NEUTROPHILS % (AUTO) 84.5 %; RED BLOOD COUNT 3.77 10^6/uL (4.70-6.10); RED CELL DISTRIBUTION WIDTH 13.6 % (12.0-15.0); WHITE BLOOD COUNT 8.7 x10^3/uL (4.8-10.8)
[2020-11-13 04:55] LABS: CALCIUM 8.4 mg/dL (8.5-10.3); MEAN PLATELET VOLUME 11.1 fL (7.4-11.4); PLT - PLATELET COUNT 144 10^3/uL (130-450); POTASSIUM 3.9 mmol/L (3.5-5.0)
[2020-11-13] MEDS: SODIUM CHLORIDE 0.9% 1,000 ML IV SCH (05:38)
[2020-11-13] MEDS ORDERED: LEVOTHYROXINE 125 MCG TABLET PO SCH (07:00)
[2020-11-13] MEDS ORDERED: PANTOPRAZOLE 40 MG TABLET PO SCH (07:00)
--- NOTE | 2020-11-13 07:41 | PROVIDER PROGRESS NOTE ---
Subjective - General Procedure Date: 11/12/20 Post Op Days: 1 Procedure Performed: Right TKA - Review of Systems Wound/Incisions: positive: Dressing dry and intact General: negative: Fever, Chills Pulmonary: negative: Shortness of breath Cardiovascular: negative: Chest pain Gastrointestinal: negative: Nausea, Vomiting Musculoskeletal: positive: Joint pain, Joint swelling Objective - Patient Data Reviewed Vital Signs: Yes Vital Signs: Vital Signs x48h Temp Pulse Pulse Resp BP BP Pulse Ox 11/13/20 04:26 36.7 C 61 18 118/62 95 11/13/20 00:21 36.8 C 59 L 18 118/53 L 96 Weight: Weight 11/11/20 11/12/20 11/13/20 23:59 23:59 23:59 Weight (kg) 96.3 kg Intake & Output: Intake and Output Totals x24h 11/11/20 11/12/20 11/13/20 23:59 23:59 23:59 Intake Total 3376 735 Output Total 1950 1200 Balance 1426 -465 - Lab Results Lab Results: 11/13/20 04:20 11/13/20 04:20 Other Lab Results: Lab Results x24hrs 11/13/20 11/13/20 11/12/20 Range/Units 04:20 04:20 14:12 WBC 8.7 (4.8-10.8) x10^3/uL RBC 3.77 L (4.70-6.10) 10^6/uL Hgb 11.0 L (14.0-18.0) g/dL Hct 33.5 L (42.0-52.0) % MCV 88.9 (80.0-94.0) fL MCH 29.2 (27.0-31.0) pg MCHC 32.8 (32.0-36.0) g/dL RDW 13.6 (12.0-15.0) % Plt Count 144 (130-450) 10^3/uL MPV 11.1 (7.4-11.4) fL Neut # (Auto) 7.3 H (1.5-6.6) 10^3/uL Lymph # (Auto) 0.6 L (1.5-3.5) 10^3/uL Mason # (Auto) 0.7 (0.0-1.0) 10^3/uL Eos # (Auto) 0.0 (0.0-0.7) 10^3/uL Baso # (Auto) 0.0 (0.0-0.1) 10^3/uL Absolute Nucleated RBC 0.00 x10^3/uL Nucleated RBC % 0.0 /100WBC Sodium 140 (135-145) mmol/L Potassium 3.9 (3.5-5.0) mmol/L Chloride 109 (101-111) mmol/L Carbon Dioxide 24 (21-32) mmol/L Anion Gap 7.0 (6-13) BUN 18 (6-20) mg/dL Creatinine 1.0 (0.6-1.2) mg/dL Estimated GFR (MDRD) 73 L (>89) Glucose 142 H (70-100) mg/dL Calcium 8.4 L (8.5-10.3) mg/dL Total Bilirubin (0.2-1.0) mg/dL AST (10-42) IU/L ALT (10-60) IU/L Alkaline Phosphatase (42-121) IU/L Total Protein (6.7-8.2) g/dL Albumin (3.2-5.5) g/dL Globulin (2.1-4.2) g/dL Albumin/Globulin Ratio (1.0-2.2) TSH 2.47 (0.34-5.60) uIU/mL 11/12/20 11/12/20 Range/Units 14:12 14:12 WBC 10.1 (4.8-10.8) x10^3/uL RBC 4.61 L (4.70-6.10) 10^6/uL Hgb 13.3 L (14.0-18.0) g/dL Hct 41.5 L (42.0-52.0) % MCV 90.0 (80.0-94.0) fL MCH 28.9 (27.0-31.0) pg MCHC 32.0 (32.0-36.0) g/dL RDW 13.9 (12.0-15.0) % Plt Count 158 (130-450) 10^3/uL MPV 10.6 (7.4-11.4) fL Neut # (Auto) 9.4 H (1.5-6.6) 10^3/uL Lymph # (Auto) 0.4 L (1.5-3.5) 10^3/uL Mason # (Auto) 0.1 (0.0-1.0) 10^3/uL Eos # (Auto) 0.0 (0.0-0.7) 10^3/uL Baso # (Auto) 0.0 (0.0-0.1) 10^3/uL Absolute Nucleated RBC 0.00 x10^3/uL Nucleated RBC % 0.0 /100WBC Sodium 139 (135-145) mmol/L Potassium 4.2 (3.5-5.0) mmol/L Chloride 104 (101-111) mmol/L Carbon Dioxide 25 (21-32) mmol/L Anion Gap 10.0 (6-13) BUN 15 (6-20) mg/dL Creatinine 0.9 (0.6-1.2) mg/dL Estimated GFR (MDRD) 82 L (>89) Glucose 218 H (70-100) mg/dL Calcium 9.0 (8.5-10.3) mg/dL Total Bilirubin 0.5 (0.2-1.0) mg/dL AST 22 (10-42) IU/L ALT 18 (10-60) IU/L Alkaline Phosphatase 61 (42-121) IU/L Total Protein 6.8 (6.7-8.2) g/dL Albumin 4.0 (3.2-5.5) g/dL Globulin 2.8 (2.1-4.2) g/dL Albumin/Globulin Ratio 1.4 (1.0-2.2) TSH (0.34-5.60) uIU/mL - Imaging Results Radiology Imaging: positive: EMP read indepedently (No apparent hardware loos ening after right TKA good anatomical alignment.) - Current Medications Current Medications: Current Medications Generic Name Dose Route Start Last Admin Trade Name Freq PRN Reason Stop Dose Admin Acetaminophen 1,000 mg 11/12/20 12:00 11/13/20 06:30 Acetaminophen 500 Mg Tablet PO 1,000 mg Q6HR PERLA Administration Alcohol 1 amp 11/12/20 21:00 11/12/20 22:26 Ethyl Alcohol 62% Swab Ampule AFIA 1 amp BID PERLA Administration Aspirin 81 mg 11/12/20 21:00 11/12/20 22:26 Aspirin Ec 81 Mg Tablet PO 81 mg BID PERLA Administration Fentanyl 25 - 50 mcg 11/12/20 11:31 11/12/20 11:33 Fentanyl 100 Mcg/2 Ml Vial IVP 11/13/20 11:31 50 mcg Q5M PRN Administration BREAKTHROUGH PAIN (2nd Choice) Hydromorphone HCl 0.2 - 0.6 mg 11/12/20 11:31 11/12/20 12:01 Hydromorphone 0.5 Mg/0.5 Ml Syringe IVP 11/13/20 11:31 0.5 mg Q5M PRN Administration PAIN (First Choice) Sodium Chloride 1,000 mls @ 100 mls/hr 11/12/20 18:00 11/13/20 05:38 Normal Saline 0.9% IV 11/13/20 13:59 100 mls/hr .Q10H PERLA Administration Levothyroxine Sodium 125 mcg 11/13/20 07:00 11/13/20 06:30 Levothyroxine 125 Mcg Tablet PO 125 mcg QDAC PERLA Administration Oxycodone HCl 5 mg 11/12/20 11:18 11/13/20 00:24 Oxycodone 5 Mg Tablet PO 5 mg Q6HR PRN Administration PAIN Pantoprazole Sodium 40 mg 11/13/20 07:00 11/13/20 06:30 Pantoprazole 40 Mg Tablet PO 40 mg QDAC PERLA Administration Sodium Chloride 10 ml 11/12/20 11:18 11/12/20 12:53 Sodium Chloride Flush 0.9% 10 Ml Syringe IVP 10 ml PRN PRN Administration NEEDED PER PROVIDER ORDERS Sodium Chloride 10 ml 11/12/20 17:00 11/13/20 00:24 Sodium Chloride Flush 0.9% 10 Ml Syringe IVP 10 ml 0100,0900,1700 PERLA Administration - Physical Exam Wound/Incisions: positive: Dressing dry and intact General Appearance: positive: No acute distress Respiratory: positive: No respiratory distress Skin: positive: Color nml Neurologic/Psychiatric: positive: Oriented x3 (Dressing dry dry and intact, patient is neurovascularly intact in his right lower leg) ABX Reporting Has patient been on IV antibiotics over the past 48 hours?: Yes Impression/Plan - Problem List Problem List: Patient is a 75-year-old male who is postop day 1 right TKA performed by Dr Ernesto Barroso at [facility] on 11/12/2020. Patient denies fevers chills chest pain shortness of breath nausea or vomiting. His pain is well controlled. Patient is neurovascularly intact in his dressing is dry and intact. Patient is being medically comanaged by hospitalist. No complications from his surgery yesterday provide he can perform his physical and occupational therapy and is deemed safe to discharge home he is cleared by orthopedic surgery to be discharged today.
--- NOTE | 2020-11-13 07:48 | Discharge Plan ---
Discharge Plan Problem Reviewed?: Yes Disposition: Home, Self Care Condition: Good Diet: Regular Activity Restrictions: Activity as Tolerated Shower Restrictions: No Driving Restrictions: Yes (Do not operate motor vehicle) Assistance Devices: Walker Weight Bearing: Partial Weight Plan of Treatment: Patient is to perform physical therapy and occupational therapy exercises, pain control monitor for signs and symptoms of infection and is going to be following up in the clinic this 11/17/2020. Patient is to take scheduled tramadol 50 mg every 4-6 hours along with Tylenol 650 mg every 6 hours, patient can use 1 5 mg oxycodone every 4-6 hours as needed for breakthrough pain. Patient is to take 81 mg of aspirin twice a day for blood clot prevention. Patient is following up on 11/17/2020 at 11:45 AM at the [facility] orthopedic clinic in [place]. No Smoking: If you smoke, Please STOP! Call for help. Follow-up with: AASHISH ROCKWELL PA-C [Primary Care Provider] -
[2020-11-13] MEDS ORDERED: SODIUM CHLORIDE 0.9% 1,000 ML IV SCH (08:00)
[2020-11-13] MEDS: ASPIRIN EC 81 MG TABLET PO SCH (08:08)
[2020-11-13] MEDS: ethyl alcohoL 62% SWAB AMPULE NAS SCH (10:07)
[2020-11-13] MEDS ORDERED: HYDROmorphone 0.5 MG/0.5 ML SYRINGE IVP ONE (12:00)
[2020-11-13 14:15] VITALS: BP 150/70
[2020-11-13] MEDS ORDERED: oxyCODONE 5 MG TABLET PO ONE (14:30)
== END 2020-11-13 14:25 | disposition home or self-care (01) ==
LOC: SDS 06:08 → MS2 12:21 → SDS 11-13 14:25
PROVIDERS: ATTEND Orthopaedic Surgery
DX: M17.11 Unilateral primary osteoarthritis, right knee (principal); E66.3 Overweight; Z68.29 Body mass index [BMI] 29.0-29.9, adult; I10 Essential (primary) hypertension; K21.9 Gastro-esophageal reflux disease without esophagitis; M10.9 Gout, unspecified; E89.0 Postprocedural hypothyroidism; Z66 Do not resuscitate; H54.7 Unspecified visual loss; H91.90 Unspecified hearing loss, unspecified ear; Z79.82 Long term (current) use of aspirin; Z79.899 Other long term (current) drug therapy
CPT/HCPCS: 27447; 36415; 73560; 80048; 80053; 84443; 85025; 97162; 97165; 97530; A9270; C1713; J0690; J1170; J3370; J7120

== ENCOUNTER 2020-11-21 19:44 | Emergency (ER) | payer MEDICARE ==
--- NOTE | 2020-11-21 20:42 | ED Physician Documentation ---
History of Present Illness - Stated complaint Stated Complaint: RAPID BREATHING/LEG PX - Chief complaint Chief Complaint: Ext Problem - History obtained from History obtained from: Patient - History of Present Illness Timing: How many days ago (5) Pain level max: 5 Pain level now: 0 - Additonal information Additional information: Patient is a 75-year-old male who presents to the emergency department after being seen in the walk-in clinic today. He had a right total knee replacement about 9 days ago with orthopedics here. He states that about 5 days ago started having pain in the right thigh whenever he sits down. He states that when the pain occurs he tends to breathe faster. The urgent care clinic was concerned for possible DVT and PE. Patient states that he currently has no pain. No fevers. No chills. Worse with sitting, better with standing. Review of Systems Ten Systems: 10 systems reviewed and negative Constitutional: denies: Fever, Chills Nose: denies: Rhinorrhea / runny nose, Congestion Throat: denies: Sore throat Cardiac: denies: Chest pain / pressure, Palpitations, Calf pain Respiratory: denies: Dyspnea, Cough, Wheezing GI: denies: Abdominal Pain, Nausea, Vomiting, Diarrhea : denies: Dysuria Skin: denies: Rash Musculoskeletal: denies: Neck pain, Back pain Neurologic: denies: Headache PD PAST MEDICAL HISTORY - Past Medical History Past Medical History: Yes Cardiovascular: Hypertension Endocrine/Autoimmune: HyPOthyroidism GI: GERD Musculoskeletal: Gout - Past Surgical History Past Surgical History: Yes General: Other Ortho: Knee replacement - Present Medications Home Medications: Ambulatory Orders Medication Instructions Recorded Confirmed Allopurinol [Zyloprim] 300 mg PO DAILY 11/11/20 11/21/20 Amlodipine Besylate [Norvasc] 10 mg PO DAILY 11/11/20 11/21/20 Aspirin [Aspirin EC] 81 mg PO DAILY 11/11/20 11/21/20 Levothyroxine [Synthroid] 125 mcg PO QDAC 11/11/20 11/21/20 Lisinopril/Hydrochlorothiazide 1 each PO DAILY 11/11/20 11/21/20 [Zestoretic 20-12.5 mg Tablet] Multivitamin 1 each PO DAILY 11/11/20 11/21/20 Omeprazole 20 mg PO DAILY 11/11/20 11/21/20 Tramadol HCl [Ultram] 50 mg PO Q6HR PRN 11/21/20 11/21/20 - Allergies Allergies/Adverse Reactions: Allergies Allergy/AdvReac Type Severity Reaction Status Date / Time No Known Drug Allergies Allergy Verified 11/21/20 20:00 - Social History Does the pt smoke?: No Smoking Status: Never smoker Does the pt drink ETOH?: No Does the pt have substance abuse?: No - Immunizations Immunizations are current?: Yes - POLST Patient has POLST: No PD ED PE NORMAL - Vitals Vital signs reviewed: Yes - General General: Alert and oriented X 3, No acute distress - HEENT HEENT: Moist mucous membranes - Neck Neck: Supple, no meningeal sign - Cardiac Cardiac: RRR, Strong equal pulses - Respiratory Respiratory: No respiratory distress, Clear bilaterally - Abdomen Abdomen: Soft, Non tender, Non distended - Derm Derm: Warm and dry - Extremities Extremities: Other (Right lower extremity - Neurovascular intact. No signs of infection. Mild swelling of the right leg. No tenderness over the thigh, posterior thigh, calf.) - Neuro Neuro: Alert and oriented X 3 - Psych Psych: Normal mood, Normal affect Results - Vitals Vitals: Vital Signs - 24 hr 11/21/20 11/21/20 11/21/20 19:45 20:19 20:25 Temperature 36.1 C L 36.9 C Heart Rate 70 67 66 Respiratory 25 H 22 21 Rate Blood Pressure 151/81 H 127/75 127/75 O2 Saturation 100 99 100 11/21/20 11/21/20 11/21/20 20:48 21:27 22:01 Temperature 37.1 C Heart Rate 65 57 L 57 L Respiratory 17 14 14 Rate Blood Pressure 144/74 H 132/89 H 153/70 H O2 Saturation 100 100 100 Oxygen O2 Source Room air - Labs Labs: Laboratory Tests 11/21/20 11/21/20 20:54 20:54 WBC 7.5 RBC 4.02 L Hgb 11.7 L Hct 36.3 L MCV 90.3 MCH 29.1 MCHC 32.2 RDW 14.1 Plt Count 273 MPV 9.0 Neut # (Auto) 5.9 Lymph # (Auto) 0.9 L [place] # (Auto) 0.4 Eos # (Auto) 0.1 Baso # (Auto) 0.0 Absolute Nucleated RBC 0.00 Nucleated RBC % 0.0 Sodium 135 Potassium 4.0 Chloride 103 Carbon Dioxide 25 Anion Gap 7.0 BUN 21 H Creatinine 0.8 Estimated GFR (MDRD) 94 Glucose 96 Calcium 8.7 Total Bilirubin 1.1 H AST 23 ALT 23 Alkaline Phosphatase 60 Total Protein 7.1 Albumin 4.0 Globulin 3.1 Albumin/Globulin Ratio 1.3 - Rads (name of study) RLE duplex US Radiology: Prelim report reviewed, EMP read contemporaneously, See rad report (No DVT. There is a superficial peroneal thrombosis.) CT pulmonary angiogram Radiology: Prelim report reviewed, EMP read contemporaneously, See rad report (1. No evidence acute pulmonary emboli. 2. No evidence of acute pulmonary process. 3. Moderately advanced coronary artery calcifications. ) PD MEDICAL DECISION MAKING - ED course Complexity details: reviewed results, re-evaluated patient, considered differential, d/w patient, d/w search engine optimization consultant ED course: 75-year-old male with postoperative swelling. No DVT. Does have a superficial peroneal vein thrombosis. No evidence of pulmonary embolus on CT pulmonary angiogram. Discussed the case with Dr. Ochoa, orthopedics who recommends follow- up in clinic. Does not recommend anticoagulation at this time. I think this is reasonable. Patient will follow up with Dr. Barroso next week. Patient counseled regarding signs and symptoms for which I believe and urgent re- evaluation would be necessary. Patient with good understanding of and agreement to plan and is comfortable going home at this time This document was made in part using voice recognition software. While efforts are made to proofread this document, sound alike and grammatical errors may occur. Departure - Departure Disposition: 01 Home, Self Care Clinical Impression: Peripheral edema, Superficial vein thrombosis Condition: Good Instructions: ED Phlebitis Superficial, ED Leg Swelling Unilateral Follow-Up: AASHISH ROCKWELL PA-C [Primary Care Provider] - Within 1 week Ernesto Barroso MD [Provider Admit Priv/Credential] - Within 1 week Comments: Follow-up with Dr. Barroso for further care. Return if you worsen. You do not have any deep venous thrombosis in your leg, but you do have a superficial clot in your peroneal vein. These generally do not need anticoagulation. Also do not have a blood clot in your lungs, but you do have coronary artery disease and eugenia uld follow-up with your doctor for further evaluation of this including potential stress test. Return if you worsen
[2020-11-21] MEDS ORDERED: IOVERSOL 320 100 ML VIAL IVP ONE ×2 (20:43→21:21)
[2020-11-21 20:59] LABS: BASOPHILS % (AUTO) 0.5 %; EOSINOPHILS # (AUTO) 0.1 10^3/uL (0.0-0.7); EOSINOPHILS % (AUTO) 1.7 %; HCT - HEMATOCRIT 36.3 % (42.0-52.0); HGB - HEMOGLOBIN 11.7 g/dL (14.0-18.0); LYMPHOCYTES # (AUTO) 0.9 10^3/uL (1.5-3.5); LYMPHOCYTES % (AUTO) 12.5 %; MEAN CORPUSCULAR HEMOGLOBIN 29.1 pg (27.0-31.0); MEAN CORPUSCULAR HGB CONC 32.2 g/dL (32.0-36.0); MEAN CORPUSCULAR VOLUME 90.3 fL (80.0-94.0); MONOCYTES # (AUTO) 0.4 10^3/uL (0.0-1.0); MONOCYTES % (AUTO) 5.6 %; NEUTROPHILS # (AUTO) 5.9 10^3/uL (1.5-6.6); NEUTROPHILS % (AUTO) 78.4 %; PLT - PLATELET COUNT 273 10^3/uL (130-450); RED BLOOD COUNT 4.02 10^6/uL (4.70-6.10); RED CELL DISTRIBUTION WIDTH 14.1 % (12.0-15.0); WHITE BLOOD COUNT 7.5 x10^3/uL (4.8-10.8)
[2020-11-21 21:12] LABS: ALBUMIN/GLOBULIN RATIO 1.3 (1.0-2.2); BILIRUBIN,TOTAL 1.1 mg/dL (0.2-1.0); CALCIUM 8.7 mg/dL (8.5-10.3); CREATININE 0.8 mg/dL (0.6-1.2); TOTAL PROTEIN 7.1 g/dL (6.7-8.2)
--- NOTE | 2020-11-21 21:43 | CT Report ---
PROCEDURE: ANGIO CHEST W/WO INDICATIONS: tachypnea, s/p R knee surgery CONTRAST: IV CONTRAST: Optiray 320 ml: 100 PO CONTRAST: *NO PO CONTRAST TECHNIQUE: After the administration of intravenous contrast, 2 mm thick sections acquired from the pulmonary api renetta to the posterior costophrenic angles. 3-dimensional maximum intensity projection (MIP) coronal a nd sagittal reformats were then acquired through the thorax. For radiation dose reduction, the follow ing was used: automated exposure control, adjustment of mA and/or kV according to patient size. COMPARISON: None FINDINGS: Image quality: Excellent. Pulmonary arteries: Pulmonary arteries are normal in size, and demonstrate no intraluminal filling d efects to suggest central pulmonary embolism. Lungs and pleura: Lungs are clear. No pleural effusions or pneumothorax. Central and peripheral ai rways are patent. Mediastinum: Heart size is normal, without pericardial effusion. Moderately advanced coronary artery calcifications. No mediastinal or hilar adenopathy. Thoracic aorta is normal in caliber and enhance ment. Esophagus is normal in caliber, without hiatal hernia. Bones and chest wall: No suspicious bony lesions. Ribs and thoracic spine appear intact throughout. No axillary or supraclavicular adenopathy. The thyroid is normal in size and there are no incident al findings. Abdomen: Visualized upper abdominal solid organs appear normal in the early arterial phase of enhanc ement. IMPRESSION: 1. No evidence acute pulmonary emboli. 2. No evidence of acute pulmonary process. 3. Moderately advanced coronary artery calcifications. Reviewed by: Feng Bell MD on 11/21/2020 9:42 PM PDT Approved by: Feng Bell MD on 11/21/2020 9:42 PM PDT Station ID: [id number]
[2020-11-21 22:37] VITALS: BP 153/78
--- NOTE | 2020-11-22 10:11 | Ultrasound Report ---
PROCEDURE: Duplex Ext Veins Right INDICATIONS: RLE swelling, s/p surgery TECHNIQUE: Real-time imaging, as well as color and pulse Doppler interrogation, were performed of the lower extr emity deep veins from the inguinal ligament to the popliteal fossa. COMPARISON: Correlation is made with the accompanying chest CT, 11/21/2020 FINDINGS: The deep veins are normally compressible, and free of intraluminal thrombus superior to th e knee. However, there is noncompressibility seen within the peroneal vein. Color and pulse Doppler d emonstrate normal phasic intraluminal flow. There is normal augmentation response to distal compress ion maneuver. IMPRESSION: No deep venous thrombosis can be seen proximal to the knee. However, there is likely thrombus seen within the peroneal vein. Note: No significant discrepancy from the preliminary report. Reviewed by: Julius Barker MD on 11/22/2020 9:10 AM SHELBY Approved by: Julius Barker MD on 11/22/2020 9:10 AM SHELBY Station ID: [id number]
== END 2020-11-21 23:35 | disposition home or self-care (01) ==
LOC: ED 19:44
DX: I82.811 Embolism and thrombosis of superficial veins of right lower extremity (principal); Z96.651 Presence of right artificial knee joint; R60.0 Localized edema; I25.10 Atherosclerotic heart disease of native coronary artery without angina pectoris; I10 Essential (primary) hypertension; Z79.82 Long term (current) use of aspirin
CPT/HCPCS: 36415; 71275; 80053; 85025; 93971; 99284; Q9967

== ENCOUNTER 2020-12-23 16:54 | Outpatient (CLI) | payer MEDICARE ==
--- NOTE | 2020-12-23 19:58 | XRAY Report ---
PROCEDURE: Knee View RT INDICATIONS: TKA, R KNEE TECHNIQUE: 4 views of the right knee(s) were acquired. COMPARISON: None. FINDINGS: Bones: No fractures or dislocations. No suspicious bony lesions. Total right knee prosthesis in pl juan. No evidence of hardware failure or loosening. Medial compartment left knee joint space narrowing noted. Soft tissues: No joint effusion. No suspicious soft tissue calcifications. IMPRESSION: Total right knee prosthesis in place. No evidence of hardware failure or loosening. Medial compartment left knee joint space narrowing Reviewed by: Damon Stanley MD on 12/23/2020 6:56 PM AKCONNER Approved by: Damon Stanley MD on 12/23/2020 6:56 PM AKDT Station ID: [id number]
== END 2020-12-23 23:59 | disposition home or self-care (01) ==
LOC: DI.N 16:54
PROVIDERS: ATTEND Physician Assistant
DX: Z96.651 Presence of right artificial knee joint (principal); M25.862 Other specified joint disorders, left knee

== ENCOUNTER 2021-04-30 11:01 | Outpatient (CLI) | payer MEDICARE ==
--- NOTE | 2021-05-07 10:07 | XRAY Report ---
PROCEDURE: Knee 4 View RT INDICATIONS: RIGHT TOTAL KNEE ARTHROPLASTY TECHNIQUE: 4 views of the right knee(s) were acquired. COMPARISON: None. FINDINGS: Bones: No fractures or dislocations. No suspicious bony lesions. Right knee arthroplasty is been p erformed. Soft tissues: No joint effusion. No suspicious soft tissue calcifications. IMPRESSION: Expected appearance of right knee arthroplasty. Reviewed by: Nick Heredia MD on 05/07/2021 10:05 AM PDT Approved by: Nick Heredia MD on 05/07/2021 10:05 AM PDT Station ID: [id number]
== END 2021-04-30 11:02 | disposition home or self-care (01) ==
LOC: DI.N 11:01
PROVIDERS: ATTEND Physician Assistant
DX: Z96.651 Presence of right artificial knee joint (principal)

== ENCOUNTER 2021-07-20 12:26 | Outpatient (CLI) | payer MEDICARE ==
[2021-07-20 12:46] LABS: BASOPHILS % (AUTO) 0.8 %; EOSINOPHILS # (AUTO) 0.1 10^3/uL (0.0-0.7); EOSINOPHILS % (AUTO) 2.3 %; HCT - HEMATOCRIT 44.2 % (42.0-52.0); HGB - HEMOGLOBIN 14.3 g/dL (14.0-18.0); LYMPHOCYTES # (AUTO) 1.1 10^3/uL (1.5-3.5); LYMPHOCYTES % (AUTO) 20.4 %; MEAN CORPUSCULAR HGB CONC 32.4 g/dL (32.0-36.0); MEAN CORPUSCULAR VOLUME 86.7 fL (80.0-94.0); MEAN PLATELET VOLUME 10.2 fL (7.4-11.4); MONOCYTES # (AUTO) 0.4 10^3/uL (0.0-1.0); MONOCYTES % (AUTO) 7.6 %; NEUTROPHILS # (AUTO) 3.6 10^3/uL (1.5-6.6); NEUTROPHILS % (AUTO) 68.7 %; PLT - PLATELET COUNT 171 10^3/uL (130-450); RED CELL DISTRIBUTION WIDTH 14.2 % (12.0-15.0); WHITE BLOOD COUNT 5.3 x10^3/uL (4.8-10.8)
[2021-07-20 13:02] LABS: % IRON SATURATION 18 % (20-50); CHOL/HDL RATIO 3.6 (<5.0); CHOLESTEROL 196 mg/dL; HDL CHOLESTEROL 54 mg/dL; IRON 59 ug/dL (45-182); LDL CHOLESTEROL,CALCULATED 128 mg/dL; LDL/HDL RATIO 2.4 (<3.6); TOTAL IRON BINDING CAPACITY 328 ug/dL (250-450); TRANSFERRIN 234 mg/dL (180-329); TRIGLYCERIDES 72 mg/dL; URIC ACID 5.6 mg/dL (2.6-7.2); VLDL CHOLESTEROL 14 mg/dL
[2021-07-20 13:12] LABS: THYROID STIMULATING HORMONE 9.58 uIU/mL (0.34-5.60)
[2021-07-20 13:45] LABS: FREE T4 (FREE THYROXINE) 0.85 ng/dL (0.58-1.64)
== END 2021-07-20 12:27 | disposition home or self-care (01) ==
LOC: LAB 12:26
PROVIDERS: ATTEND Internal Medicine
DX: E78.5 Hyperlipidemia, unspecified (principal); D64.9 Anemia, unspecified; E03.9 Hypothyroidism, unspecified; M10.9 Gout, unspecified
CPT/HCPCS: 36415; 80061; 83540; 83721; 84439; 84443; 84466; 84550; 85025

== ENCOUNTER 2021-12-01 06:00 | Outpatient (CLI) | payer MEDICARE ==
--- NOTE | 2021-12-01 18:52 | XRAY Report ---
PROCEDURE: Knee 4 View RT INDICATIONS: KNEE PAIN TECHNIQUE: 4 views of the right knee(s) were acquired. COMPARISON: 04/30/2021 FINDINGS: Bones: Total right knee prosthesis in place. No evidence of hardware failure or loosening. Normal bon e mineralization present. Small joint effusion noted. Soft tissues: No joint effusion. No suspicious soft tissue calcifications. IMPRESSION: Total right knee prosthesis in place Reviewed by: Damon Stanley MD on 12/01/2021 5:51 PM AKDT Approved by: Damon Stanley MD on 12/01/2021 5:51 PM AKDT Station ID: [id number]
== END 2021-12-01 23:59 | disposition home or self-care (01) ==
LOC: DI.WOS 06:00
PROVIDERS: ATTEND Physician Assistant Surgical
DX: Z09 Encounter for follow-up examination after completed treatment for conditions other than malignant neoplasm (principal); Z96.651 Presence of right artificial knee joint

== ENCOUNTER 2022-01-14 09:48 | Outpatient (CLI) | payer MEDICARE ==
[2022-01-14 10:05] LABS: BASOPHILS % (AUTO) 0.7 %; EOSINOPHILS # (AUTO) 0.1 10^3/uL (0.0-0.7); EOSINOPHILS % (AUTO) 2.1 %; HGB - HEMOGLOBIN 13.9 g/dL (14.0-18.0); LYMPHOCYTES % (AUTO) 22.5 %; MEAN CORPUSCULAR HGB CONC 31.6 g/dL (32.0-36.0); MEAN CORPUSCULAR VOLUME 85.6 fL (80.0-94.0); MEAN PLATELET VOLUME 10.5 fL (7.4-11.4); MONOCYTES # (AUTO) 0.3 10^3/uL (0.0-1.0); MONOCYTES % (AUTO) 7.2 %; NEUTROPHILS # (AUTO) 2.9 10^3/uL (1.5-6.6); NEUTROPHILS % (AUTO) 67.3 %; PLT - PLATELET COUNT 150 10^3/uL (130-450); RED BLOOD COUNT 5.14 10^6/uL (4.70-6.10); RED CELL DISTRIBUTION WIDTH 14.3 % (12.0-15.0); WHITE BLOOD COUNT 4.3 x10^3/uL (4.8-10.8)
[2022-01-14 10:23] LABS: ALBUMIN 4.4 g/dL (3.2-5.5); ALBUMIN/GLOBULIN RATIO 1.7 (1.0-2.2); ALKALINE PHOSPHATASE 57 IU/L (42-121); ALT ALANINE AMINOTRANSFERASE 13 IU/L (10-60); AST ASPARTATE AMINOTRANSFERASE 17 IU/L (10-42); BILIRUBIN,TOTAL 0.6 mg/dL (0.2-1.0); BUN - BLOOD UREA NITROGEN 16 mg/dL (6-20); CALCIUM 9.4 mg/dL (8.5-10.3); CARBON DIOXIDE - CO2 28 mmol/L (21-32); CHLORIDE 105 mmol/L (101-111); CHOLESTEROL 152 mg/dL; CK- CREATINE KINASE 59 IU/L (22-269); CREATININE 0.8 mg/dL (0.6-1.2); GFR - MDRD 94 (>89); GLUCOSE 97 mg/dL (70-100); HDL CHOLESTEROL 51 mg/dL; LDL CHOLESTEROL,CALCULATED 90 mg/dL; LDL/HDL RATIO 1.8 (<3.6); POTASSIUM 4.2 mmol/L (3.5-5.0); SODIUM 141 mmol/L (135-145); TRIGLYCERIDES 57 mg/dL; VLDL CHOLESTEROL 11 mg/dL
[2022-01-14 11:11] LABS: PSA TOTAL 2.15 ng/mL (0.000-2.000)
[2022-01-14 13:28] LABS: PSA FREE 0.478 ng/mL (0.16-2.81)
[2022-01-15 03:08] LABS: HCV AB <0.1 s/co ratio (0.0-0.9)
== END 2022-01-14 09:49 | disposition home or self-care (01) ==
LOC: LAB 09:48
PROVIDERS: ATTEND Internal Medicine
DX: I10 Essential (primary) hypertension (principal); K21.9 Gastro-esophageal reflux disease without esophagitis; E78.5 Hyperlipidemia, unspecified; E03.9 Hypothyroidism, unspecified; C61 Malignant neoplasm of prostate; Z11.59 Encounter for screening for other viral diseases; Z79.899 Other long term (current) drug therapy; C73 Malignant neoplasm of thyroid gland
CPT/HCPCS: 36415; 80053; 80061; 81599; 82550; 83721; 84153; 84154; 84432; 84443; 85025; 86800; 86803

== ENCOUNTER 2022-04-13 16:02 | Outpatient (CLI) | payer MEDICARE ==
--- NOTE | 2022-04-13 18:35 | XRAY Report ---
PROCEDURE: Foot 3 View LT INDICATIONS: LEFT FOOT PAIN TECHNIQUE: 3 views of the foot were acquired. COMPARISON: None FINDINGS: Bones: No fractures or dislocations. No suspicious bony lesions. Plantar and posterior calcaneal s purs noted. First metatarsophalangeal joint space and narrowing with marginal osteophyte Soft tissues: No tibiotalar joint effusion. Achilles tendon appears normal. IMPRESSION: 1. Moderate first MTP osteoarthritis. 2. Calcaneal spurs Reviewed by: Damon Stanley MD on 04/13/2022 5:34 PM AKDT Approved by: Damon Stanley MD on 04/13/2022 5:34 PM AKDT Station ID: [id number]
== END 2022-04-13 16:03 | disposition home or self-care (01) ==
LOC: DI 16:02
PROVIDERS: ATTEND Podiatrist
DX: M19.072 Primary osteoarthritis, left ankle and foot (principal); M77.32 Calcaneal spur, left foot

== ENCOUNTER 2023-01-28 09:10 | Outpatient (CLI) | payer MEDICARE ==
[2023-01-28 09:26] LABS: BASOPHILS % (AUTO) 0.4 %; EOSINOPHILS # (AUTO) 0.1 10^3/uL (0.0-0.7); EOSINOPHILS % (AUTO) 1.9 %; HCT - HEMATOCRIT 43.6 % (42.0-52.0); HGB - HEMOGLOBIN 14.1 g/dL (14.0-18.0); LYMPHOCYTES % (AUTO) 21.9 %; MEAN CORPUSCULAR HEMOGLOBIN 28.1 pg (27.0-31.0); MEAN CORPUSCULAR HGB CONC 32.3 g/dL (32.0-36.0); MEAN PLATELET VOLUME 10.2 fL (7.4-11.4); MONOCYTES # (AUTO) 0.3 10^3/uL (0.0-1.0); MONOCYTES % (AUTO) 7.1 %; NEUTROPHILS # (AUTO) 3.2 10^3/uL (1.5-6.6); NEUTROPHILS % (AUTO) 68.5 %; PLT - PLATELET COUNT 159 10^3/uL (130-450); RED BLOOD COUNT 5.01 10^6/uL (4.70-6.10); RED CELL DISTRIBUTION WIDTH 14.1 % (12.0-15.0); WHITE BLOOD COUNT 4.6 x10^3/uL (4.8-10.8)
[2023-01-28 09:43] LABS: ALBUMIN 4.2 g/dL (3.2-5.5); ALBUMIN/GLOBULIN RATIO 1.7 (1.0-2.2); ALKALINE PHOSPHATASE 69 IU/L (42-121); ALT ALANINE AMINOTRANSFERASE 11 IU/L (10-60); AST ASPARTATE AMINOTRANSFERASE 12 IU/L (10-42); BILIRUBIN,TOTAL 0.6 mg/dL (0.2-1.0); BUN - BLOOD UREA NITROGEN 11 mg/dL (6-20); CALCIUM 9.3 mg/dL (8.5-10.3); CARBON DIOXIDE - CO2 30 mmol/L (21-32); CHLORIDE 107 mmol/L (101-111); CHOL/HDL RATIO 4.4 (<5.0); CHOLESTEROL 190 mg/dL; CREATININE 1.1 mg/dL (0.6-1.3); GFR - MDRD 65 (>89); GLUCOSE 93 mg/dL (74-104); HDL CHOLESTEROL 43 mg/dL; LDL CHOLESTEROL,CALCULATED 125 mg/dL; LDL/HDL RATIO 2.9 (<3.6); POTASSIUM 4.2 mmol/L (3.5-4.5); SODIUM 141 mmol/L (135-145); TOTAL PROTEIN 6.7 g/dL (6.4-8.9); TRIGLYCERIDES 111 mg/dL (48-352); VLDL CHOLESTEROL 22 mg/dL
[2023-01-28 09:58] LABS: PSA TOTAL 2.302 ng/mL (0.000-2.000)
[2023-01-29 20:07] LABS: THYROGLOBULIN ANTIBODY <1.0 IU/mL (0.0-0.9); THYROID PEROXIDASE (TPO) AB <9 IU/mL (0-34)
== END 2023-01-28 09:11 | disposition home or self-care (01) ==
LOC: LAB 09:10
PROVIDERS: ATTEND Internal Medicine
DX: Z00.00 Encounter for general adult medical examination without abnormal findings (principal); K21.9 Gastro-esophageal reflux disease without esophagitis; E78.5 Hyperlipidemia, unspecified; I10 Essential (primary) hypertension; E03.9 Hypothyroidism, unspecified; N40.0 Benign prostatic hyperplasia without lower urinary tract symptoms; L91.8 Other hypertrophic disorders of the skin; Z79.899 Other long term (current) drug therapy; C73 Malignant neoplasm of thyroid gland
CPT/HCPCS: 36415; 80053; 80061; 83721; 84153; 84154; 84443; 85025; 86376; 86800

== ENCOUNTER 2023-12-03 13:59 | Emergency (ER) | payer MEDICARE ==
[2023-12-03 14:21] VITALS: BP 140/66; O2SAT 100
--- NOTE | 2023-12-03 16:01 | ED Physician Documentation ---
History of Present Illness - Stated complaint Stated Complaint: C+ HEAD PX/CONGESTION - Chief complaint Chief Complaint: General - History obtained from History obtained from: Patient - Additonal information Additional information: 78-year-old male with a history of hypertension presents with a positive home COVID test. He states his symptoms are very mild including scratchy throat, mild nasal congestion, he does not have any chest pain or shortness of breath, no GI or symptoms. He states they called his doctor to get paxlovid however the person on-call told him to come to the ER for that. He has no other concerns today. PD PAST MEDICAL HISTORY - Past Medical History Past Medical History: Yes Cardiovascular: Hypertension Endocrine/Autoimmune: HyPOthyroidism GI: GERD Musculoskeletal: Gout - Past Surgical History Past Surgical History: Yes General: Other Ortho: Knee replacement - Present Medications Home Medications: Ambulatory Orders Medication Instructions Recorded Confirmed Amlodipine Besylate [Norvasc] 10 mg PO DAILY 11/11/20 11/21/20 Levothyroxine [Synthroid] 125 mcg PO QDAC 11/11/20 11/21/20 Lisinopril/Hydrochlorothiazide 1 each PO DAILY 11/11/20 11/21/20 [Zestoretic 20-12.5 mg Tablet] Multivitamin 1 each PO DAILY 11/11/20 11/21/20 Omeprazole 20 mg PO DAILY 11/11/20 11/21/20 Nirmatrelvir/Ritonavir [Paxlovid 1 each PO BID #1 packet 12/03/23 300-100 mg Dose Pack] - Allergies Allergies/Adverse Reactions: Allergies Allergy/AdvReac Type Severity Reaction Status Date / Time No Known Drug Allergies Allergy Verified 12/03/23 14:03 - Social History Does the pt smoke?: No Smoking Status: Never smoker Does the pt drink ETOH?: No Does the pt have substance abuse?: No - Immunizations Immunizations are current?: Yes - POLST Patient has POLST: No PD ED PE NORMAL - Vitals Vital signs reviewed: Yes - General General: Alert and oriented X 3, No acute distress, Well developed/nourished - HEENT HEENT: Atraumatic, Moist mucous membranes, Pharynx benign - Cardiac Cardiac: RRR, No murmur - Respiratory Respiratory: No respiratory distress, Clear bilaterally - Abdomen Abdomen: Normal bowel sounds, Soft, Non tender, Non distended - Derm Derm: Normal color, Warm and dry, No rash - Neuro Neuro: Alert and oriented X 3 Eye Opening: Spontaneous Motor: Obeys Commands Verbal: Oriented GCS Score: 15 Results - Vitals Vitals: Vital Signs - 24 hr 12/03/23 14:03 Temperature 37.3 C Heart Rate 87 Respiratory 16 Rate Blood Pressure 140/66 H O2 Saturation 100 Oxygen O2 Source Room air PD Medical Decision Making - ED course Complexity details: considered differential, d/w patient ED course: 78-year-old male presents with mild scratchy throat and Nasal congestion and bouchra julissa positive for COVID at home. He has minimal symptoms, is well-appearing here, no acute distress, his physical exam is unremarkable with stable vital signs. He is requesting Paxlovid which I think is appropriate given his age and comorbidities. He does have a history of hypertension and is on amlodipine which I advised him to hold while he is taking the paxlovid. He previously was on rosuvastatin but is not taking this any longer. He reports normal kidney function in the past. Departure - Departure Disposition: Home, Self Care Clinical Impression: COVID-19 Condition: Good Instructions: ED Viral Syndrome Prescriptions: Nirmatrelvir/Ritonavir [Paxlovid 300-100 mg Dose Pack] 1 each PO BID #1 packet Comments: Please take the Paxlovid as prescribed. This is a 5-day course of medication. You can take Tylenol if needed and [id number] cough medicine as needed. If you have worsening symptoms or feeling chest pain or shortness of breath, return to the ER. The Paxlovid interacts with your amlodipine for your blood pressure. We do not recommend taking amlodipine while you are on the Paxlovid. Forms: PCP List
== END 2023-12-03 17:08 | disposition home or self-care (01) ==
LOC: ED 13:59
DX: U07.1 COVID-19 (principal); I10 Essential (primary) hypertension; E03.9 Hypothyroidism, unspecified; Z79.899 Other long term (current) drug therapy
CPT/HCPCS: 99282; 99283

== ENCOUNTER 2024-01-30 10:45 | Outpatient (CLI) | payer MEDICARE ==
[2024-01-30 11:03] LABS: BASOPHILS % (AUTO) 0.7 %; EOSINOPHILS # (AUTO) 0.1 10^3/uL (0.0-0.7); EOSINOPHILS % (AUTO) 1.4 %; HCT - HEMATOCRIT 46.9 % (42.0-52.0); HGB - HEMOGLOBIN 14.7 g/dL (14.0-18.0); LYMPHOCYTES # (AUTO) 1.1 10^3/uL (1.5-3.5); LYMPHOCYTES % (AUTO) 19.8 %; MEAN CORPUSCULAR HEMOGLOBIN 27.3 pg (27.0-31.0); MEAN CORPUSCULAR HGB CONC 31.3 g/dL (32.0-36.0); MEAN PLATELET VOLUME 10.4 fL (7.4-11.4); MONOCYTES # (AUTO) 0.4 10^3/uL (0.0-1.0); MONOCYTES % (AUTO) 6.3 %; NEUTROPHILS # (AUTO) 4.1 10^3/uL (1.5-6.6); NEUTROPHILS % (AUTO) 71.6 %; PLT - PLATELET COUNT 163 10^3/uL (130-450); RED BLOOD COUNT 5.39 10^6/uL (4.70-6.10); RED CELL DISTRIBUTION WIDTH 14.9 % (12.0-15.0); WHITE BLOOD COUNT 5.8 x10^3/uL (4.8-10.8)
[2024-01-30 11:22] LABS: ALBUMIN 4.8 g/dL (3.2-5.5); ALBUMIN/GLOBULIN RATIO 1.7 (1.0-2.2); ALKALINE PHOSPHATASE 75 IU/L (42-121); ALT ALANINE AMINOTRANSFERASE 9 IU/L (10-60); AST ASPARTATE AMINOTRANSFERASE 13 IU/L (10-42); BILIRUBIN,TOTAL 0.8 mg/dL (0.2-1.0); BUN - BLOOD UREA NITROGEN 15 mg/dL (6-20); CALCIUM 9.9 mg/dL (8.5-10.3); CARBON DIOXIDE - CO2 29 mmol/L (21-32); CHLORIDE 105 mmol/L (101-111); CHOL/HDL RATIO 3.6 (<5.0); CHOLESTEROL 185 mg/dL; GFR - MDRD 72 (>89); GLUCOSE 94 mg/dL (74-104); HDL CHOLESTEROL 51 mg/dL; LDL CHOLESTEROL,CALCULATED 108 mg/dL; LDL/HDL RATIO 2.1 (<3.6); SODIUM 140 mmol/L (135-145); TOTAL PROTEIN 7.6 g/dL (6.4-8.9); TRIGLYCERIDES 128 mg/dL; VLDL CHOLESTEROL 26 mg/dL
[2024-01-30 11:35] LABS: THYROID STIMULATING HORMONE 1.33 uIU/mL (0.34-5.60)
[2024-01-30 11:59] LABS: PSA TOTAL 2.754 ng/mL (0.000-2.000)
[2024-01-31 21:08] LABS: THYROGLOBULIN ANTIBODY <1.0 IU/mL (0.0-0.9); THYROGLOBULIN BY IMA 0.2 ng/mL (1.4-29.2)
== END 2024-01-30 10:46 | disposition home or self-care (01) ==
LOC: LAB 10:45
PROVIDERS: ATTEND Internal Medicine
DX: Z00.00 Encounter for general adult medical examination without abnormal findings (principal); K21.9 Gastro-esophageal reflux disease without esophagitis; E78.5 Hyperlipidemia, unspecified; I10 Essential (primary) hypertension; E03.9 Hypothyroidism, unspecified; M54.2 Cervicalgia; B35.1 Tinea unguium; M79.604 Pain in right leg; C61 Malignant neoplasm of prostate; N40.0 Benign prostatic hyperplasia without lower urinary tract symptoms; M54.30 Sciatica, unspecified side; L91.8 Other hypertrophic disorders of the skin; Z11.59 Encounter for screening for other viral diseases; Z79.899 Other long term (current) drug therapy; C73 Malignant neoplasm of thyroid gland
CPT/HCPCS: 36415; 80053; 80061; 83721; 84153; 84154; 84443; 85025; 86800

== ENCOUNTER 2024-02-13 12:00 | Outpatient (CLI) | payer MEDICARE ==
--- NOTE | 2024-02-13 14:46 | Ultrasound Report ---
PROCEDURE: Duplex Ext Veins Right INDICATIONS: R LEG PAIN TECHNIQUE: Real-time imaging, as well as color and pulse Doppler interrogation, were performed of the lower extr emity deep veins from the inguinal ligament to the popliteal fossa. Attempted visualization of the ca lf veins was performed. COMPARISON: None. FINDINGS: The deep veins are normally compressible, and free of intraluminal thrombus. Color and pu lse Doppler demonstrate normal phasic intraluminal flow. There is normal augmentation response to di stal compression maneuver. IMPRESSION: No deep venous thrombosis of the visualized right lower extremity. Reviewed by: Ray Fowler MD on 02/13/2024 2:45 PM PDT Approved by: Ray Fowler MD on 02/13/2024 2:45 PM PDT Station ID: [id number]
== END 2024-02-13 12:01 | disposition home or self-care (01) ==
LOC: DI 12:00
PROVIDERS: ATTEND Internal Medicine
DX: M79.604 Pain in right leg (principal)